=== PATIENT | male | born 1995 | race Hispanic/Latino ===

== ENCOUNTER 2025-04-04 17:16 | Emergency (ER) | payer SELFPAY ==
[~2025-04-04] VITALS: Ht 175.3 cm; Wt 90.7 kg
[2025-04-04 17:33] VITALS: TEMP 98.1
[2025-04-04] MEDS ORDERED: SODIUM CHLORIDE FLUSH 10 ML SYR IV PRN (17:45)
[2025-04-04 18:10] LABS: BASOPHILS % 1.1 % (0.0-1.0); EOSINOPHILS % 3.9 % (0.0-6.0); LYMPHOCYTES % 38.4 % (18.0-39.1); MONOCYTES % 14.9 % (4.4-11.3); NEUTROPHILS % 41.2 % (38.7-80.0); RED CELL DISTRIBUTION WIDTH 12.0 % (11.7-14.4)
[2025-04-04 18:13] LABS: LEUKOCYTE ESTERASE ,URINE NEGATIVE (NEGATIVE); PROTEIN,URINE DIPSTICK NEGATIVE (NEGATIVE); URINE UROBILINOGEN 0.2 mg/dL (0.2 - 1)
[2025-04-04] MEDS: SODIUM CHLORIDE 0.9% 1000ML 1,000 ML IV STA (18:14)
[2025-04-04 18:15] LABS: INR 0.85
[2025-04-04] MEDS ORDERED: IOPAMIDOL 370 MG/ML 100 ML INFUS..BTL INJ ONE (18:15)
[2025-04-04] MEDS ORDERED: SODIUM CHLORIDE 0.9% 100 ML ONE (18:15)
[2025-04-04 18:20] LABS: EPITHELIAL CELLS,URINE FEW /LPF; WBC,URINE (MAN) 0-5 /HPF (0-5)
[2025-04-04 18:21] LABS: EST GLOMERULAR FILTRATION RATE 120.0 ML/MIN (>=60)
[2025-04-04 19:24] VITALS: PULSE 115; RESP 18
[2025-04-04 20:43] VITALS: BP 139/94; PULSE 98; RESP 17; O2SAT 100
== END 2025-04-04 20:50 | disposition home or self-care (01) ==
LOC: ER 17:51
DX: R04.0 Epistaxis (principal); R59.9 Enlarged lymph nodes, unspecified; R00.0 Tachycardia, unspecified; R11.2 Nausea with vomiting, unspecified; R53.81 Other malaise; K76.0 Fatty (change of) liver, not elsewhere classified; R16.0 Hepatomegaly, not elsewhere classified; F41.8 Other specified anxiety disorders; F17.210 Nicotine dependence, cigarettes, uncomplicated
CPT/HCPCS: 36415; 71260; 74177; 80053; 81001; 84484; 85025; 85610; 85730; 93005; 99284; J7030; J7050; Q9967